=== PATIENT | female | born 1990 ===

== ENCOUNTER 2017-05-19 17:19 | Emergency (ER) | payer MEDICAID ==
[2017-05-19 17:24] VITALS: BP 133/90; PULSE 85; RESP 18; TEMP 98.3; O2SAT 99
--- NOTE | 2017-05-19 17:32 | ED PDOC ---
Lower Extremity Pain/Injury Time Seen by Provider: 05/19/17 17:25 Chief Complaint (Nursing): Lower Extremity Problem/Injury Chief Complaint (Provider): Left ankle pain History Per: Patient History/Exam Limitations: no limitations Onset/Duration Of Symptoms: Hrs Current Symptoms Are (Timing): Still Present Additional Complaint(s): Patient is a 26 y/o female with no significant past medical history brought to the emergency department by EMS for left ankle pain. Reports that she injured herself after tripping over a puddle of water. Patient is able to ambulate and bear weight on her foot. Denies fall, decreased range of motion, or other complaints. PCP: Dr. Tala Silva - Ankle/Foot Description Of Injury: Other (Tripped) Past Medical History Reviewed: Historical Data, Nursing Documentation, Vital Signs Vital Signs: Last Vital Signs Temp 98.3 F 05/19/17 17:20 Pulse 85 05/19/17 17:20 Resp 18 05/19/17 17:20 BP 133/90 05/19/17 17:20 Pulse Ox 99 05/19/17 17:20 - Medical History PMH: No Chronic Diseases - Surgical History Surgical History: No Surg Hx - Family History Family History: States: Unknown Family Hx - Living Arrangements Living Arrangements: With Family - Social History Current smoker - smoking cessation education provided: No Ex-Smoker (has not smoked in the last 12 months): No Alcohol: None Drugs: Denies - Immunization History Hx Tetanus Toxoid Vaccination: No - Home Medications Home Medications: Ambulatory Orders Medication Instructions Recorded Ibuprofen [Motrin] 600 mg PO Q8 #30 tab 05/19/17 - Allergies Allergies/Adverse Reactions: Allergies Allergy/AdvReac Type Severity Reaction Status Date / Time No Known Allergies Allergy Verified 05/19/17 17:20 Review of Systems ROS Statement: Except As Marked, All Systems Reviewed And Found Negative Musculoskeletal: Positive for: Foot Pain (left ankle pain with mild swelling and no decreased range of motion) Physical Exam - Reviewed Nursing Documentation Reviewed: Yes Vital Signs Reviewed: Yes - Physical Exam Appears: Positive for: Well, Non-toxic, No Acute Distress Head Exam: Positive for: ATRAUMATIC, NORMAL INSPECTION, NORMOCEPHALIC Skin: Positive for: Normal Color, Warm, Dry Eye Exam: Positive for: Normal appearance Neck: Positive for: Normal Extremity: Positive for: Normal ROM, Tenderness (mild tenderness to palpation on lateral aspect of left ankle), Swelling (mild, left ankle) Neurologic/Psych: Positive for: Alert, Oriented (x3) - ECG O2 Sat by Pulse Oximetry: 99 (RA) Pulse Ox Interpretation: Normal Medical Decision Making Medical Decision Making: Time: 17:29 Initial impression: Left ankle pain Initial plan: Tylenol 650 mg PO Left ankle x-ray 17:56 Discussed x-ray findings with patient. Xray shows no fracture or dislocation. Jose bandage applied. Patient asking for note for work. ~ Scribe Attestation: Documented by Mellissa Clemons, acting as a scribe for MIGUEL ANGEL Katz. Provider Scribe Attestation: All medical record entries made by the Scribe were at my direction and personally dictated by me. I have reviewed the chart and agree that the record accurately reflects my personal performance of the history, physical exam, medical decision making, and the department course for this patient. I have also personally directed, reviewed, and agree with the discharge instructions and disposition. Disposition - Clinical Impression Clinical Impression: Ankle sprain Counseled Patient/Family Regarding: Diagnosis, Need For Followup - Disposition Referrals: Laly Velázquez MD [Staff Provider] - Disposition: Routine/Home Disposition Time: 18:05 Condition: STABLE Additional Instructions: Your xray was normal, no fracture. Please apply ice to area 15 minutes three times a day. Take Motrin as needed for pain every 6 hours, with food to not upset stomach. Follow up with orthopedic if pain persists over one week. Prescriptions: Ibuprofen [Motrin] 600 mg PO Q8 #30 tab Instructions: Ankle Sprain (ED) Forms: [employer] (Mosotho), [facility] ED School/Work Excuse - POA Present On Arrival: None
--- NOTE | 2017-05-19 18:11 | RAD ---
PROCEDURE: Left Ankle Radiographs. HISTORY: pain s.p injury COMPARISON: None available. FINDINGS: BONES: No acute displaced fracture. JOINTS: No dislocation. SOFT TISSUES: Soft tissue swelling. No evidence of radiopaque foreign body. OTHER FINDINGS: None. IMPRESSION: Soft tissue swelling. No acute displaced fracture, dislocation, or significant joint effusion identified. If symptoms persist or if there is clinical concern, x-ray follow-up in 7-10 days should be considered.
== END 2017-05-19 18:26 | disposition home or self-care (01) ==
LOC: H.ER 17:19
DX: S93.402A Sprain of unspecified ligament of left ankle, initial encounter (principal); X50.9XXA Other and unspecified overexertion or strenuous movements or postures, initial encounter; Y92.89 Other specified places as the place of occurrence of the external cause

== ENCOUNTER 2017-12-21 13:21 | Emergency (ER) | payer MEDICAID ==
[2017-12-21 13:41] VITALS: RESP 18
[2017-12-21] MEDS ORDERED: Tdap Vaccine 0.5 ml Vial (10-64 yrs) IM ONE ×2 (14:36→14:47)
[2017-12-21] MEDS ORDERED: Rabies Immune Globulin 150 INTLU/ML VIAL IM ONE (14:37)
[2017-12-21] MEDS ORDERED: Amoxicillin-Clav 875-125 mg Tab PO STA (14:39)
[2017-12-21] MEDS ORDERED: Lidocaine 1% Inj (20ml) ONE (14:51)
--- NOTE | 2017-12-21 14:53 | ED PDOC ---
HPI: Skin/Bite Injury Time Seen by Provider: 12/21/17 14:41 Chief Complaint (Nursing): Bite Chief Complaint (Provider): Bite History Per: Patient History/Exam Limitations: no limitations Onset/Duration Of Symptoms: Days Current Symptoms Are (Timing): Still Present Location Of Injury: Left: Arm Additional Complaint(s): 27 year old female presents to the ED for an evaluation of dog bite on her left arm onset today at 1200. She states she was wearing her jacket and an unknown dog attacked her. Also reports of numbness. PMD: Non H Provider Past Medical History Reviewed: Historical Data, Nursing Documentation, Vital Signs Vital Signs: Last Vital Signs Temp 97.9 F 12/21/17 13:38 Pulse 102 H 12/21/17 13:38 Resp 18 12/21/17 13:38 BP 121/77 12/21/17 13:38 Pulse Ox 99 12/21/17 16:12 - Medical History PMH: No Chronic Diseases - Family History Family History: States: Unknown Family Hx - Immunization History Hx Tetanus Toxoid Vaccination: No - Home Medications Home Medications: Ambulatory Orders Medication Instructions Recorded Ibuprofen [Motrin] 600 mg PO Q8 #30 tab 05/19/17 Amoxicillin/Clavulanate [Augmentin 1 tab PO BID #20 tab 12/21/17 875 MG-125 MG] - Allergies Allergies/Adverse Reactions: Allergies Allergy/AdvReac Type Severity Reaction Status Date / Time No Known Allergies Allergy Verified 05/19/17 17:20 Review of Systems ROS Statement: Except As Marked, All Systems Reviewed And Found Negative Musculoskeletal: Positive for: Arm Pain (left) Skin: Positive for: Other (bite on left arm) Physical Exam - Reviewed Nursing Documentation Reviewed: Yes Vital Signs Reviewed: Yes - Physical Exam Appears: Positive for: Non-toxic Head Exam: Positive for: ATRAUMATIC, NORMAL INSPECTION, NORMOCEPHALIC Skin: Positive for: Normal Color, Warm, Dry Cardiovascular/Chest: Positive for: Regular Rate, Rhythm. Negative for: Murmur Respiratory: Positive for: Normal Breath Sounds. Negative for: Decreased Breath Sounds, Accessory Muscle Use, Respiratory Distress Extremity: Positive for: Normal ROM (on left dorsal elbow there are 2 puncture wounds and 1 laceration that requires suture), Capillary Refill (less than 2 seconds). Negative for: Other (numbness or tingling) Neurologic/Psych: Positive for: Alert, Oriented (x3). Negative for: Motor/ Sensory Deficits - ECG O2 Sat by Pulse Oximetry: 99 (RA) Pulse Ox Interpretation: Normal Medical Decision Making Medical Decision Making: Time: 1435 Initial impression: dog bite on left dorsal elbow Initial plan: --Adacel (10-64 yrs) 0.5ml --Augmentin 875mg -125mg 1tab --Imogan 1860 intlu IM --Rbavert Vaccine Inj 2.5 units Scribe Attestation: Documented by Vanna Pulido, acting as a scribe for Ronald Tee PA-C. Provider Scribe Attestation: All medical record entries made by the Scribe were at my direction and personally dictated by me. I have reviewed the chart and agree that the record accurately reflects my personal performance of the history, physical exam, medical decision making, and the department course for this patient. I have also personally directed, reviewed, and agree with the discharge instructions and disposition. Disposition - Clinical Impression Clinical Impression: Animal bite wound - Patient ED Disposition Is Patient to be Admitted: No Doctor Will See Patient In The: ED Counseled Patient/Family Regarding: Diagnosis, Need For Followup, Rx Given - Disposition Disposition: Routine/Home Disposition Time: 17:17 Condition: STABLE Additional Instructions: Keep non sutured wounds covered with bandaids for 2-3 days Sutures removed in 7 days Return to ED for rabies vaccine #2 (Day 3) on 12/24 Prescriptions: Amoxicillin/Clavulanate [Augmentin 875 MG-125 MG] 1 tab PO BID #20 tab Instructions: Animal and Human Bites, Animal Bites (DC) Forms: [employer] (Sudanese) Laceration - Laceration Repair No standard instances Description Of Wound: Linear Wound Cleansed With: Sterile Saline Anesthesia: Lidocaine 1% Wound Examination: Irrigated With Saline Wound Debridement/Revision: Wound Debrided (minimal debridement of included lipose tissue) Wound Closure: Suture (two 4-0 nylon sutures) Suture Technique And Material Used: Interrupted Wound Complexity: Simple Wound Complexity: Simple
[2017-12-21] MEDS ORDERED: Bacitracin 500 Units/gm Oint Foilpak UD ONE (17:22)
[2017-12-21 17:51] VITALS: BP 120/78; PULSE 76; TEMP 98; O2SAT 100
== END 2017-12-21 17:50 | disposition home or self-care (01) ==
LOC: H.ER 13:21
DX: S51.812A Laceration without foreign body of left forearm, initial encounter (principal); W54.0XXA Bitten by dog, initial encounter; Y92.89 Other specified places as the place of occurrence of the external cause

== ENCOUNTER 2017-12-24 16:37 | Emergency (ER) | payer MEDICAID ==
[2017-12-24 17:06] VITALS: BP 115/75; PULSE 101; RESP 16; TEMP 98.2; O2SAT 99
--- NOTE | 2017-12-24 17:22 | ED PDOC ---
HPI: General Adult Time Seen by Provider: 12/24/17 17:15 Chief Complaint (Nursing): Rabies Vaccine Series Chief Complaint (Provider): Rabies Vaccine Series History Per: Patient History/Exam Limitations: no limitations Onset/Duration Of Symptoms: Days Additional Complaint(s): Jorgito Galeas is a 27 year old female with no past medical history who is presenting to the ED for dosage for Rabies Vaccine. Patient states she has been keeping up with her antibiotics and denies any new medical concerns. She offers no other medical complaints. PMD: none provided Past Medical History Reviewed: Historical Data, Nursing Documentation, Vital Signs Vital Signs: Last Vital Signs Temp 98.2 F 12/24/17 17:04 Pulse 101 H 12/24/17 17:04 Resp 16 12/24/17 17:04 BP 115/75 12/24/17 17:04 Pulse Ox 99 12/24/17 17:26 - Medical History PMH: No Chronic Diseases - Surgical History Other surgeries: cataract surgery - Family History Family History: States: Unknown Family Hx - Immunization History Hx Tetanus Toxoid Vaccination: No - Home Medications Home Medications: Ambulatory Orders Medication Instructions Recorded Ibuprofen [Motrin] 600 mg PO Q8 #30 tab 05/19/17 Amoxicillin/Clavulanate [Augmentin 1 tab PO BID #20 tab 12/21/17 875 MG-125 MG] - Allergies Allergies/Adverse Reactions: Allergies Allergy/AdvReac Type Severity Reaction Status Date / Time No Known Allergies Allergy Verified 05/19/17 17:20 Review of Systems ROS Statement: Except As Marked, All Systems Reviewed And Found Negative Constitutional: Positive for: Other (requires rabies vaccine) Physical Exam - Reviewed Nursing Documentation Reviewed: Yes Vital Signs Reviewed: Yes - Physical Exam Appears: Positive for: Well, Non-toxic, No Acute Distress Extremity: Positive for: Other ((+) 2 cm wounf with 2 intact sutures to left dorsal elbow) Neurologic/Psych: Positive for: Alert, Oriented. Negative for: Motor/Sensory Deficits - ECG O2 Sat by Pulse Oximetry: 99 (RA) Pulse Ox Interpretation: Normal - Progress ED Course And Treament: RABIES VACCINE 1ML IM X 1 DOSE Medical Decision Making Medical Decision Making: Time: 17:08 Plan: --Rabavert Vaccine Inj 2.5 units IM Would cleaned and Bacitracin and sterile dressing applied to site. Patient advised to apply ice to site and return is any fevers noted. Upon provider evaluation patient is medically stable, and requires no further treatment in the ED at this time. Patient will be discharged. Counseling was provided and all questions were answered regarding diagnosis and need for follow up. There is agreement to discharge plan. Return if symptoms persist or worsen. Scribe Attestation: Documented by Sonia Sawyer, acting as a scribe for Susi Navarro PA-C. Provider Scribe Attestation: All medical record entries made by the Scribe were at my direction and personally dictated by me. I have reviewed the chart and agree that the record accurately reflects my personal performance of the history, physical exam, medical decision making, and the department course for this patient. I have also personally directed, reviewed, and agree with the discharge instructions and disposition. Disposition - Clinical Impression Clinical Impression: Need for rabies vaccination, Visit for wound check - Patient ED Disposition Is Patient to be Admitted: No - Disposition Disposition: Routine/Home Disposition Time: 17:29 Condition: FAIR Instructions: Wound Care (DC), Rabies Vaccine Forms: [employer] (Vietnamese)
== END 2017-12-24 18:15 | disposition home or self-care (01) ==
LOC: H.ER 16:37
DX: Z29.14 Encounter for prophylactic rabies immune globulin (principal)

== ENCOUNTER 2017-12-28 08:29 | Emergency (ER) | payer MEDICAID ==
[2017-12-28 08:41] VITALS: BP 112/76; PULSE 88; RESP 18; TEMP 98; O2SAT 98
--- NOTE | 2017-12-28 09:46 | ED PDOC ---
HPI: General Adult Time Seen by Provider: 12/28/17 09:12 Chief Complaint (Nursing): Rabies Vaccine Series Chief Complaint (Provider): Rabies Vaccine Series History Per: Patient History/Exam Limitations: no limitations Onset/Duration Of Symptoms: Days (x1 week) Current Symptoms Are (Timing): Still Present Additional Complaint(s): 27 y/o female with no significant PMHx presenting for rabies vaccine series. Patient was seen here 12/21/17 after being bit by a dog on her left upper arm. Patient stated the dog was unknown to her and was unable to verify its vaccination status. Patient is presenting here on day 7 for rabies vaccine series. She denies any complications. PMD: Tala Silav Past Medical History Reviewed: Historical Data, Nursing Documentation, Vital Signs Vital Signs: Last Vital Signs Temp 98.0 F 12/28/17 08:41 Pulse 88 12/28/17 08:41 Resp 18 12/28/17 08:41 BP 112/76 12/28/17 08:41 Pulse Ox 98 12/28/17 08:41 - Medical History PMH: No Chronic Diseases - Surgical History Surgical History: No Surg Hx - Family History Family History: States: Unknown Family Hx - Immunization History Hx Tetanus Toxoid Vaccination: No - Home Medications Home Medications: Ambulatory Orders Medication Instructions Recorded Amoxicillin/Clavulanate [Augmentin 1 tab PO BID #20 tab 12/21/17 875 MG-125 MG] - Allergies Allergies/Adverse Reactions: Allergies Allergy/AdvReac Type Severity Reaction Status Date / Time No Known Allergies Allergy Verified 12/28/17 08:47 Review of Systems ROS Statement: Except As Marked, All Systems Reviewed And Found Negative Constitutional: Negative for: Fever Skin: Positive for: Lesions (2 bite bagley to left upper arm) Physical Exam - Reviewed Nursing Documentation Reviewed: Yes Vital Signs Reviewed: Yes - Physical Exam Appears: Positive for: Non-toxic, No Acute Distress Extremity: Positive for: Other (2 puncture wounds to patient's left upper arm; slight erythema surrounding upper wound but patient reports a decrease as compared to 1 week ago, no purulent discharge, no warmth) Neurologic/Psych: Positive for: Alert - ECG O2 Sat by Pulse Oximetry: 98 (RA) Pulse Ox Interpretation: Normal Medical Decision Making Medical Decision Makin:22 Impression: Rabies vaccine series Plan: Administered day 7 rabies vaccine series without complication. Patient instructed to return for followup vaccine. Scribe Attestation: Documented by Andrew Clement, acting as a scribe for Nirmala He MD. Provider Scribe Attestation: All medical record entries made by the Scribe were at my direction and personally dictated by me. I have reviewed the chart and agree that the record accurately reflects my personal performance of the history, physical exam, medical decision making, and the department course for this patient. I have also personally directed, reviewed, and agree with the discharge instructions and disposition. Disposition - Patient ED Disposition Is Patient to be Admitted: No Counseled Patient/Family Regarding: Diagnosis, Need For Followup - Disposition Disposition: Routine/Home Disposition Time: 09:30 Additional Instructions: MEG GANT, thank you for letting us take care of you today. Your provider was Nirmala He MD and you were treated for 2ND RABIES SHOT. The emergency medical care you received today was directed at your acute symptoms. If you were prescribed any medication, please fill it and take as directed. It may take several days for your symptoms to resolve. Return to the Emergency Department if your symptoms worsen, do not improve, or if you have any other problems. Please contact your doctor or call one of the physicians/clinics you have been referred to that are listed on the Patient Visit Information form that is included in your discharge packet. Bring any paperwork you were given at discharge with you along with any medications you are taking to your follow up visit. Our treatment cannot replace ongoing medical care by a primary care provider outside of the emergency department. Thank you for allowing the [email or web address] team to be part of your care today.
== END 2017-12-28 10:08 | disposition home or self-care (01) ==
LOC: H.ER 08:29
DX: Z29.14 Encounter for prophylactic rabies immune globulin (principal)

== ENCOUNTER 2018-01-04 08:07 | Emergency (ER) | payer MEDICAID ==
[2018-01-04 08:13] VITALS: BMI 35.1
--- NOTE | 2018-01-04 09:22 | ED PDOC ---
HPI: General Adult Time Seen by Provider: 01/04/18 09:02 Chief Complaint (Nursing): Rabies Vaccine Series Chief Complaint (Provider): Rabies Vaccine Series History Per: Patient History/Exam Limitations: no limitations Onset/Duration Of Symptoms: Days (12/21/17) Additional Complaint(s): Jorgito Magaña is a 27 y/o female with no significant past medical history who presents to the ED for a rabies vaccine series injection. Patient was seen 12/21 for a dog bite to her left elbow and has subsequently returned for rabies series injections; today she returned for her 4th injection. Her wound is healing well with no discharge, no pain, and no associated fever. She denies any other complaints. PMD: Tala Silva Past Medical History Reviewed: Historical Data, Nursing Documentation, Vital Signs Vital Signs: Last Vital Signs Temp 98.3 F 01/04/18 08:13 Pulse 100 H 01/04/18 08:13 Resp 17 01/04/18 08:13 BP 105/72 01/04/18 08:13 Pulse Ox 98 01/04/18 09:40 - Medical History PMH: No Chronic Diseases - Surgical History Surgical History: No Surg Hx - Family History Family History: States: Unknown Family Hx - Immunization History Hx Tetanus Toxoid Vaccination: No - Home Medications Home Medications: Ambulatory Orders Medication Instructions Recorded Amoxicillin/Clavulanate [Augmentin 1 tab PO BID #20 tab 12/21/17 875 MG-125 MG] - Allergies Allergies/Adverse Reactions: Allergies Allergy/AdvReac Type Severity Reaction Status Date / Time No Known Allergies Allergy Verified 12/28/17 08:47 Review of Systems ROS Statement: Except As Marked, All Systems Reviewed And Found Negative Constitutional: Negative for: Fever, Chills Skin: Positive for: Other (left elbow bite scar) Physical Exam - Reviewed Nursing Documentation Reviewed: Yes Vital Signs Reviewed: Yes - Physical Exam Appears: Positive for: No Acute Distress (comfortable) Head Exam: Positive for: ATRAUMATIC, NORMOCEPHALIC Skin: Positive for: Normal Color, Warm, Dry Eye Exam: Positive for: Normal appearance, EOMI, PERRL Neck: Positive for: Painless ROM Extremity: Positive for: Normal ROM (upper and lower extremities), Other (Left elbow: scar from bite, no discharge, no swelling, no tenderness). Negative for : Deformity, Swelling Neurologic/Psych: Positive for: Alert, Oriented. Negative for: Motor/Sensory Deficits - ECG O2 Sat by Pulse Oximetry: 98 (RA) Pulse Ox Interpretation: Normal Medical Decision Making Medical Decision Making: Time: 09:06 Initial Impression: Rabies vaccine follow up visit Initial Plan: --Rabavert Vaccine Inj 2.5 units IM 09:40 Upon provider reevaluation patient is feeling better, is medically stable, and requires no further treatment in the ED at this time. Patient will be discharged home. Counseling was provided and all questions were answered regarding diagnosis and need for follow up with PMD. There is agreement to discharge plan. Scribe Attestation: Documented by Guerrero Rowan, acting as a scribe for Vanessa Gallardo MD Provider Scribe Attestation: All medical record entries made by the Scribe were at my direction and personally dictated by me. I have reviewed the chart and agree that the record accurately reflects my personal performance of the history, physical exam, medical decision making, and the department course for this patient. I have also personally directed, reviewed, and agree with the discharge instructions and disposition. Disposition - Clinical Impression Clinical Impression: Encounter for repeat administration of rabies vaccination - Patient ED Disposition Is Patient to be Admitted: No Doctor Will See Patient In The: Office Counseled Patient/Family Regarding: Studies Performed, Diagnosis, Need For Followup - Disposition Referrals: Tala Silva MD [Family Provider] - Disposition: Routine/Home Disposition Time: :40 Condition: GOOD Additional Instructions: Follow up with your PCP in 4- 5 days. Instructions: Rabies Vaccine
[2018-01-04 11:45] VITALS: BP 122/74; PULSE 65; RESP 14; TEMP 98.2; O2SAT 100
== END 2018-01-04 11:45 | disposition home or self-care (01) ==
LOC: H.ER 08:07
DX: Z29.14 Encounter for prophylactic rabies immune globulin (principal); Z23 Encounter for immunization